=== PATIENT | female | born 1965 | race Caucasian/White ===

== ENCOUNTER 2023-05-03 14:13 | Emergency (ER) | payer BC ==
[~2023-05-03] VITALS: Ht 154.9 cm; Wt 64.5 kg
[2023-05-03] MEDS ORDERED: METF500T13 PO (14:28)
[2023-05-03] MEDS ORDERED: PERCOCET 5MG/325MG TAB PO ONE (16:10)
[2023-05-03] MEDS ORDERED: ONDANSETRON 4MG ORAL DISINTEGRATING TAB PO ONE (16:10)
[2023-05-03] MEDS ORDERED: MORPHINE 4 MG/ML 1ML VIAL IV ONE (16:45)
[2023-05-03] MEDS ORDERED: OXYCODONE/APAP 5MG/325MG(HOME DOSE PACK) PO ONE (18:00)
[2023-05-03] MEDS ORDERED: PERC5TAB12 PO (18:03)
[2023-05-03 18:25] VITALS: BP 166/75; TEMP 98.1; O2SAT 99
== END 2023-05-03 18:35 | disposition home or self-care (01) ==
LOC: M ED 14:13
DX: S82.851A Displaced trimalleolar fracture of right lower leg, initial encounter for closed fracture (principal); W01.0XXA Fall on same level from slipping, tripping and stumbling without subsequent striking against object, initial encounter; Y92.009 Unspecified place in unspecified non-institutional (private) residence as the place of occurrence of the external cause; Y93.01 Activity, walking, marching and hiking; Y99.8 Other external cause status; Z79.84 Long term (current) use of oral hypoglycemic drugs